=== PATIENT | female | born 1975 | race Two or more races ===

== ENCOUNTER 2016-11-17 06:28 | Emergency (ER) | payer MEDICAID ==
[~2016-11-17] VITALS: Ht 167.6 cm; Wt 79.4 kg
[2016-11-17] MEDS ORDERED: MORPHINE SULFATE 4 MG/ML CPJ (NOT FOR IM USE) IV STA (07:35)
[2016-11-17] MEDS ORDERED: KETOROLAC 30MG/ML VIAL IV STA (07:35)
[2016-11-17] MEDS ORDERED: ONDANSETRON HCL 4MG/2ML VIAL IV STA (07:35)
[2016-11-17] MEDS ORDERED: SODIUM CHLORIDE 0.9% 1,000 ML IV ONE (07:35)
[2016-11-17] MEDS ORDERED: KETOROLAC 30MG/ML VIAL IV ONE (08:00)
[2016-11-17 08:48] LABS: BASOPHILS % 0.4 % (0.0-2.0); DIFFERENTIAL COMMENT 0; EOSINOPHILS % 0.1 % (0.0-5.0); HEMATOCRIT. 30.5 % (36.0-48.0); HEMOGLOBIN. 9.7 g/dL (12.0-16.0); LYMPHOCYTES % 9.3 % (20.0-50.0); MEAN CORPUSCULAR HEMOGLOBIN 22.8 pg (28.0-32.0); MEAN CORPUSCULAR HGB CONC 31.7 g/dL (31.0-37.0); MEAN CORPUSCULAR VOLUME 72.1 fL (81.0-99.0); MEAN PLATELET VOLUME 7.6 fl (7.4-10.4); NEUTROPHILS % 86.2 % (40.0-76.0); PLATELET 351 x1000/uL (130-400); RED BLOOD CELL COUNT 4.23 mill/uL (4.2-5.4); WHITE BLOOD COUNT 10.1 x1000/uL (4.5-11.0)
[2016-11-17 08:52] LABS: PROTHROMBIN TIME 9.9 sec
[2016-11-17 08:58] LABS: ALANINE AMINOTRANSFERASE 15 IU/L (13-61); ALBUMIN 3.6 g/dL (3.4-5.0); ANION GAP 10; CARBON DIOXIDE 25 mEq/L (21-32); CHLORIDE 107 mEq/L (98-107); ETHANOL BLOOD < 10 mg/dL; INDEX HEMOLYSI 1 (1-3); INDEX ICTERIC 1 (1-4); INDEX LIPEMIC 1 (1-3); LIPASE 199 IU/L (73-393); UREA NITROGEN BLOOD 14 mg/dL (7-21); eGFR > 60 mL/min (>60)
[2016-11-17 09:12] LABS: HCG SCREEN NEGATIVE
[2016-11-17 09:43] LABS: CLARITY URINE CLEAR (CLEAR); GLUCOSE URINE NEGATIVE (NEGATIVE); KETONES URINE NEGATIVE (NEGATIVE); LEUKOCYTE ESTERASE URINE TRACE (NEGATIVE); NITRITE URINE NEGATIVE (NEGATIVE); OCCULT BLOOD URINE 3+ (NEGATIVE); PROTEIN URINE NEGATIVE (NEGATIVE); SPECIFIC GRAVITY URINE 1.016 (1.005-1.030); UROBILINOGEN URINE 0.2 E.U./dL (0.2-1.0)
[2016-11-17 10:06] LABS: COLOR URINE BLOODY (YELLOW); SQUAMOUS EPITHELIAL CELL URINE 1+ /lpf (RARE/1+)
[2016-11-17 10:07] LABS: BACTERIA URINE TRACE; RBC URINE 50-100 /hpf (0-2)
[2016-11-17 10:10] LABS: WBC URINE 0-2 /hpf (0-2)
[2016-11-17 10:13] LABS: *AMPHETAMINES SCREEN URINE NEGATIVE (NEGATIVE); *BARBITURATES SCREEN URINE NEGATIVE (NEGATIVE); *BENZODIAZEPINES SCREEN URINE NEGATIVE (NEGATIVE); *COCAINE SCREEN URINE NEGATIVE (NEGATIVE); CANNABINOID URINE SCREEN NEGATIVE (NEGATIVE); ECSTASY MDMA SCREEN URINE NEGATIVE (NEGATIVE); METHADONE URINE SCREEN NEGATIVE (NEGATIVE); OPIATES URINE SCREEN NEGATIVE (NEGATIVE); PHENCYCLIDINE URINE SCREEN NEGATIVE (NEGATIVE)
[2016-11-17 10:45] VITALS: BP 104/68
== END 2016-11-17 10:45 | disposition home or self-care (01) ==
LOC: ER 06:33
DX: N23 Unspecified renal colic (principal); Z88.6 Allergy status to analgesic agent
CPT/HCPCS: 36415; 76705; 80053; 80305; 81001; 83690; 84703; 85025; 85610; 96361; 96374; 96375; 99285; G0482; J1885; J2270; J2405; J7030; Z7610

== ENCOUNTER 2016-12-28 23:32 | Emergency (ER) | payer MEDICAID ==
[~2016-12-28] VITALS: Ht 165.1 cm; Wt 83.0 kg
[2016-12-29] MEDS ORDERED: IBUPROFEN 600MG TABLET PO ONE (08:15)
[2016-12-29 08:59] VITALS: BP 126/78
== END 2016-12-29 09:04 | disposition home or self-care (01) ==
LOC: ER 12-29 00:01
DX: M79.1 Myalgia (principal); R10.9 Unspecified abdominal pain; M54.5 Low back pain; M54.2 Cervicalgia; F41.9 Anxiety disorder, unspecified; D64.9 Anemia, unspecified; Z88.8 Allergy status to other drugs, medicaments and biological substances
CPT/HCPCS: 81025; 99282

== ENCOUNTER 2017-03-15 22:35 | Emergency (ER) | payer MEDICAID ==
[~2017-03-15] VITALS: Ht 160 cm; Wt 63.5 kg
[2017-03-15 22:42] VITALS: BP 108/72
== END 2017-03-16 01:14 | disposition left against medical advice (07) ==
LOC: ER 22:35
DX: R51 Headache (principal); Z53.21 Procedure and treatment not carried out due to patient leaving prior to being seen by health care provider

== ENCOUNTER 2017-11-01 14:28 | Emergency (ER) | payer SELFPAY ==
[~2017-11-01] VITALS: Ht 167.6 cm; Wt 55.0 kg
[2017-11-01] MEDS ORDERED: WELLBUTRIN (15:01)
[2017-11-01 15:52] LABS: BASOPHILS % 0.3 % (0.0-2.0); EOSINOPHILS % 0.4 % (0.0-5.0); HEMATOCRIT. 36.3 % (36.0-48.0); HEMOGLOBIN. 11.7 g/dL (12.0-16.0); LYMPHOCYTES % 15.1 % (20.0-50.0); MEAN CORPUSCULAR HEMOGLOBIN 26.4 pg (28.0-32.0); MEAN CORPUSCULAR VOLUME 81.9 fL (81.0-99.0); MONOCYTES % 5.4 % (2.0-8.0); NEUTROPHILS % 78.8 % (40.0-76.0); PLATELET 327 x1000/uL (130-400); RED BLOOD CELL COUNT 4.43 mill/uL (4.2-5.4); RED CELL DISTRIBUTION WIDTH 14.6 % (11.6-14.6)
[2017-11-01 15:53] LABS: CHLORIDE 108 mEq/L (98-107)
[2017-11-01] MEDS ORDERED: IOHEXOL-300 100 ML BOTTLE ONE (21:47)
[2017-11-01 21:58] LABS: CLARITY URINE CLEAR (CLEAR); COLOR URINE YELLOW (YELLOW); KETONES URINE 2+ (NEGATIVE); LEUKOCYTE ESTERASE URINE NEGATIVE (NEGATIVE); NITRITE URINE NEGATIVE (NEGATIVE); OCCULT BLOOD URINE 3+ (NEGATIVE); PH URINE 6.5 (4.5-8.0); PROTEIN URINE TRACE (NEGATIVE); SPECIFIC GRAVITY URINE 1.023 (1.005-1.030); UROBILINOGEN URINE 0.2 E.U./dL (0.2-1.0)
[2017-11-01 23:54] VITALS: BP 111/81
== END 2017-11-02 00:02 | disposition home or self-care (01) ==
LOC: ER 16:06
DX: R10.31 Right lower quadrant pain (principal); D64.9 Anemia, unspecified; D72.829 Elevated white blood cell count, unspecified; R31.9 Hematuria, unspecified; Z88.8 Allergy status to other drugs, medicaments and biological substances
CPT/HCPCS: 36415; 74177; 76830; 76856; 80053; 81003; 81025; 83690; 85025; 99285; Q9967; Z7610

== ENCOUNTER 2018-07-18 22:21 | Emergency (ER) | payer MEDICAID ==
[~2018-07-18] VITALS: Ht 165.1 cm; Wt 86.3 kg
[~2018-07-18 22:21] MED LIST: WELLBUTRIN
[2018-07-19 00:38] LABS: CLARITY URINE CLEAR (CLEAR); COLOR URINE YELLOW (YELLOW); KETONES URINE NEGATIVE (NEGATIVE); LEUKOCYTE ESTERASE URINE NEGATIVE (NEGATIVE); NITRITE URINE NEGATIVE (NEGATIVE); OCCULT BLOOD URINE 3+ (NEGATIVE); PH URINE 5.5 (4.5-8.0); PROTEIN URINE NEGATIVE (NEGATIVE); SPECIFIC GRAVITY URINE 1.004 (1.005-1.030); UROBILINOGEN URINE 0.2 E.U./dL (0.2-1.0)
[2018-07-19] MEDS ORDERED: ACETAMINOPHEN 325MG TABLET PO ONE (07:15)
[2018-07-19 08:35] LABS: BASOPHILS % 0.4 % (0.0-2.0); EOSINOPHILS % 0.5 % (0.0-5.0); HEMATOCRIT. 36.1 % (36.0-48.0); HEMOGLOBIN. 11.5 g/dL (12.0-16.0); LYMPHOCYTES % 20.4 % (20.0-50.0); MEAN CORPUSCULAR HEMOGLOBIN 25.5 pg (28.0-32.0); MEAN CORPUSCULAR VOLUME 79.8 fL (81.0-99.0); MEAN PLATELET VOLUME 7.9 fl (7.4-10.4); MONOCYTES % 6.7 % (2.0-8.0); PLATELET 337 x1000/uL (130-400); RED BLOOD CELL COUNT 4.52 mill/uL (4.2-5.4)
[2018-07-19 08:43] LABS: CHLORIDE 105 mEq/L (98-107)
[2018-07-19 08:57] LABS: B-HCG QUANTITATIVE < 1 mIU/mL (<3)
[2018-07-19 09:57] VITALS: BP 109/53
== END 2018-07-19 09:58 | disposition home or self-care (01) ==
LOC: ER 22:21
DX: N94.6 Dysmenorrhea, unspecified (principal); R10.30 Lower abdominal pain, unspecified; N93.9 Abnormal uterine and vaginal bleeding, unspecified; D64.9 Anemia, unspecified
CPT/HCPCS: 36415; 80048; 81025; 84702; 99283

== ENCOUNTER 2023-01-04 00:18 | Emergency (ER) | payer SELFPAY ==
[~2023-01-04] VITALS: Ht 165.1 cm; Wt 89.0 kg
[2023-01-04 00:19] VITALS: O2SAT 99
[2023-01-04] MEDS ORDERED: DEXAMETHASONE 10 MG/ML VIAL IM ONE (00:45)
[2023-01-04] MEDS ORDERED: FAMOTIDINE 20MG TABLET PO ONE (00:45)
[2023-01-04] MEDS ORDERED: DIPH25CA83 MT (02:58)
[2023-01-04] MEDS ORDERED: EPIN0.3P3 IM (02:58)
[2023-01-04 04:00] VITALS: BP 130/76; PULSE 78; RESP 16; TEMP 98.1
== END 2023-01-04 04:18 | disposition home or self-care (01) ==
LOC: ER 00:18
DX: T78.40XA Allergy, unspecified, initial encounter (principal); X58.XXXA Exposure to other specified factors, initial encounter
CPT/HCPCS: 96372; 99283; J1100; Z7610

== ENCOUNTER 2023-10-25 07:05 | Emergency (ER) | payer MEDICAID ==
[~2023-10-25] VITALS: Ht 165.1 cm; Wt 86.0 kg
[~2023-10-25 07:05] MED LIST changes: +DIPH25CA83 MT; +EPIN0.3P3 IM
[2023-10-25 07:07] VITALS: O2SAT 99
[2023-10-25 08:03] LABS: HEMATOCRIT. 36.9 % (36.0-48.0); MEAN CORPUSCULAR HEMOGLOBIN 27.4 pg (28.0-32.0); MEAN CORPUSCULAR HGB CONC 32.4 g/dL (31.0-37.0); MEAN CORPUSCULAR VOLUME 84.7 fL (81.0-99.0); MEAN PLATELET VOLUME 8.2 fl (7.4-10.4); PLATELET 349 x1000/uL (130-400); RED BLOOD CELL COUNT 4.36 mill/uL (4.2-5.4); RED CELL DISTRIBUTION WIDTH 16.5 % (11.6-14.6); WHITE BLOOD COUNT 10.9 x1000/uL (4.5-11.0)
[2023-10-25 08:04] LABS: DIFFERENTIAL COMMENT 1
[2023-10-25 08:37] LABS: CHLORIDE 109 mEq/L (98-107); POTASSIUM 4.4 mEq/L (3.5-5.1); SODIUM 139 mEq/L (136-145)
[2023-10-25 08:38] LABS: CALCIUM 9.9 mg/dL (8.7-10.4); CARBON DIOXIDE 21 mEq/L (21-32)
[2023-10-25 08:43] LABS: CREATININE 0.7 mg/dL (0.6-1.0); GLUCOSE 123 mg/dL (70-105); UREA NITROGEN BLOOD 15 mg/dL (9-23)
[2023-10-25 08:44] LABS: TROPONIN I HIGH SENSITIVITY 11 ng/L (3.0-34)
[2023-10-25 08:58] LABS: HCG SCREEN NEGATIVE
[2023-10-25 10:38] VITALS: BP 116/74; PULSE 65; RESP 20; TEMP 99
[2023-10-25 11:15] LABS: PLATELET ESTIMATE NORMAL
== END 2023-10-25 10:40 | disposition home or self-care (01) ==
LOC: ER 07:05
DX: J40 Bronchitis, not specified as acute or chronic (principal); Z88.8 Allergy status to other drugs, medicaments and biological substances
CPT/HCPCS: 80048; 84703; 85025; 84484; 36415; 71045; 93005; 99285; Z7610

== ENCOUNTER 2023-11-14 23:52 | Emergency (ER) | payer MEDICAID, OTHER ==
[~2023-11-14] VITALS: Ht 167.6 cm; Wt 91.0 kg
[2023-11-15 00:04] VITALS: O2SAT 99
[2023-11-15 00:48] LABS: BASOPHILS % 0.4 % (0.0-2.0); EOSINOPHILS % 0.7 % (0.0-5.0); HEMOGLOBIN. 12.1 g/dL (12.0-16.0); LYMPHOCYTES % 24.7 % (20.0-50.0); MEAN CORPUSCULAR HEMOGLOBIN 27.8 pg (28.0-32.0); MEAN CORPUSCULAR HGB CONC 32.8 g/dL (31.0-37.0); MEAN CORPUSCULAR VOLUME 84.8 fL (81.0-99.0); MEAN PLATELET VOLUME 7.7 fl (7.4-10.4); MONOCYTES % 7.5 % (2.0-8.0); NEUTROPHILS % 66.7 % (40.0-76.0); PLATELET 364 x1000/uL (130-400); RED BLOOD CELL COUNT 4.36 mill/uL (4.2-5.4); RED CELL DISTRIBUTION WIDTH 16.5 % (11.6-14.6); WHITE BLOOD COUNT 8.6 x1000/uL (4.5-11.0)
[2023-11-15 00:56] LABS: CHLORIDE 106 mEq/L (98-107); POTASSIUM 4.4 mEq/L (3.5-5.1); SODIUM 140 mEq/L (136-145)
[2023-11-15 00:57] LABS: CARBON DIOXIDE 26 mEq/L (21-32)
[2023-11-15 00:58] LABS: CALCIUM 10.3 mg/dL (8.7-10.4)
[2023-11-15 01:00] LABS: INR 0.9; PROTHROMBIN TIME 9.8 sec (9.6-11.0)
[2023-11-15 01:02] LABS: CREATININE 0.9 mg/dL (0.6-1.0); GLUCOSE 111 mg/dL (70-105)
[2023-11-15 01:03] LABS: UREA NITROGEN BLOOD 14 mg/dL (9-23)
[2023-11-15 01:13] LABS: HCG SCREEN NEGATIVE
[2023-11-15] MEDS: MORPHINE SULFATE 4 MG/ML INJ (FOR IV/IM USE) IV STA (01:20)
[2023-11-15] MEDS: ONDANSETRON HCL 4MG/2ML INJ IV STA (01:21)
[2023-11-15] MEDS: SODIUM CHLORIDE 0.9% 1,000 ML IV ONE (01:21)
[2023-11-15 01:27] VITALS: TEMP 98.9
[2023-11-15 03:08] LABS: CLARITY URINE CLEAR (CLEAR); COLOR URINE YELLOW (YELLOW); GLUCOSE URINE NEGATIVE (NEGATIVE); KETONES URINE NEGATIVE (NEGATIVE); LEUKOCYTE ESTERASE URINE NEGATIVE (NEGATIVE); NITRITE URINE NEGATIVE (NEGATIVE); OCCULT BLOOD URINE 3+ (NEGATIVE); PH URINE 6.5 (4.5-8.0); PROTEIN URINE NEGATIVE (NEGATIVE); SPECIFIC GRAVITY URINE 1.012 (1.005-1.030); UROBILINOGEN URINE 0.2 E.U./dL (0.2-1.0)
[2023-11-15 03:25] LABS: BACTERIA URINE TRACE; RBC URINE TNTC /hpf (0-2); SQUAMOUS EPITHELIAL CELL URINE 2+ /lpf (RARE/1+); WBC URINE 0-2 /hpf (0-2); YEAST URINE 2+
[2023-11-15] MEDS ORDERED: TAMS-11 MT (06:11)
[2023-11-15] MEDS ORDERED: T3 PO (06:11)
[2023-11-15 06:51] VITALS: BP 110/65; PULSE 64; RESP 12
== END 2023-11-15 06:52 | disposition home or self-care (01) ==
LOC: ER 23:52
DX: R10.9 Unspecified abdominal pain (principal)
CPT/HCPCS: 99291; 74176; 96374; 96361; 96375; 80048; 81003; 84703; 83690; 85025; 85610; 36415; J2405; J2270; J7030